=== PATIENT | female | born 1975 | race Caucasian/White ===

== ENCOUNTER → 2021-08-31 | Emergency (ER) | payer OTHER ==
[2021-08-31 14:45] LABS: HEMOGLOBIN 14.3 gm/dl (12.3-15.3); RED BLOOD COUNT 5.2 M/UL (4.00-5.10); WHITE BLOOD COUNT 13.3 K/UL (4.5-11.0)
[2021-08-31 15:04] LABS: BUN/CREATININE RATIO 12 (0-10)
== END | disposition left against medical advice (07) ==
LOC: ER1 14:07
PROVIDERS: Emergency Medicine
DX: R07.9 Chest pain, unspecified (principal)
CPT/HCPCS: 71045; 80053; 82550; 82553; 84484; 84703; 85025; 93005; 99281